=== PATIENT | female | born 1950 | race Caucasian/White ===

== ENCOUNTER 2017-10-01 07:48 | Day surgery (SDC) | payer OTHER, SELFPAY ==
--- NOTE | 2017-10-01 | PATH_ITS ---
[facility] Accession Number: [id number] . 01 Material submitted: . POLYP AT ANUS . 02 Diagnosis: Designated Anal Polyp: Hyperplastic polyp. MRV/10/04/2017 . 02 Electronically signed: . Roberto Tay MD, PhD, Pathologist NPI- [id number] . 01 Gross description: . POLYP AT ANUS: Received in formalin is 1 fragment(s) of casanova, soft tissue measuring 0.4 x 0.3 x 0.1 cm submitted entirely in 1 cassette(s) /CKI /CKI . 02 Pathologist provided ICD-10: K62.1 . 02 CPT . 756974 Performed at: 01 [facility] [address], [place], [place] [id number] MD Alvarado Bower MD Phone: [phone] Performed at: 02 [facility] [address] [place], [place] [id number] MD Dom Lakhani MD Phone: [phone]
[2017-10-01 08:27] VITALS: BP 123/80; PULSE 77; RESP 16; TEMP 36.6; O2SAT 94; BMI 30.7
[2017-10-01] MEDS: SODIUM CHLORIDE 0.9% 1,000 ML 200 ML IV (08:33)
--- NOTE | 2017-10-01 09:05 | PM.HP.1 ---
History of Present Illness Date Patient Seen: 10/01/17 Time Patient Seen: 09:05 Chief complaint: [id number] Narrative: Patient is a woman whose last colonoscopy was 13 years ago. She is here for screening examination. Patient History Surgical History History of tonsillectomy Status post colonoscopy Status post laparoscopic cholecystectomy Family & Social History Family History: Reviewed 10/01/17 by Shai Tolentino MD Social History: household members spouse Meds Home Medications Medication Instructions Recorded Confirmed Type ACETAMINOPHEN 1 mg PO Q4HP PRN #1 tab 01/14/16 10/01/17 Rx omeprazole 20 mg capsule,delayed 20 mg PO QDAY #90 cap 07/14/17 10/01/17 Rx release Allergies Allergy/AdvReac Type Severity Reaction Status Date / Time No Known Drug Allergies Allergy Verified 10/01/17 08:20 Review of Systems Review of Systems All systems reviewed & are unremarkable except as noted in HPI and below Exam Vital Signs (past 8 hours): - 10/01/17 08:27 Temperature 97.9 F Pulse Rate 77 Respiratory Rate 16 Blood Pressure 123/80 H Pulse Oximetry 94 Oxygen Delivery Method Room Air Narrative Exam Narrative: Co operative in no apparent distress. Lungs are clear to auscultation no rales or rhonchi heart regular rate and rhythm no murmur gallop abdomen is soft protuberant nontender without mass patient is alert and oriented x3. Assessment & Plan (1) Screening for colon cancer: Current visit: Yes Status: Acute Plan: Assessment/Plan Narrative: Will proceed to colonoscopy. I have discussed the procedure and the rationale with the patient including risks of bleeding, perforation which would necessitate a major operation, failure to find remove all lesions and the potential to tattoo. They appeared to understand and wished to proceed.
--- NOTE | 2017-10-01 09:08 | PM.PREOP ---
Pre-operative Note Interval Note Pre-op Check: Yes History & Physical exam performed today by Physician Changes: No ASA Class (for procedural sedation): I
[2017-10-01] MEDS: MIDAZOLAM 5 MG/5 ML VIAL IV (09:29)
[2017-10-01] MEDS: fentaNYL 250 MCG/5 ML INJ IV (09:30)
--- NOTE | 2017-10-01 09:44 | PM.OP.ENDO ---
Operative Date/Time/Diagnoses Date of procedure: 10/01/17 Time of procedure: 09:44 Pre-op diagnosis: Screening exam. Post-op diagnosis: same (Diverticulosis sigmoid colon. single polyp in the rectum near anal verge) Procedure & Clinicians Study performed: Colonoscopy with cold biopsy Same procedure as scheduled: Yes Indications: Screening Surgeon: Shai Tolentino Procedure Notes SCOAP/Timeout: Performed Procedure in detail: The patient was placed in the left lateral decubitus position and underwent IV sedation directed by the surgeon consisting of fentanyl and Versed. Digital exam was remarkable for external skin tags from old hemorrhoidal disease.. The scope was inserted and advanced through the rectum into the sigmoid, descending, transverse, and ascending colon. The patient was noted to have sigmoid diverticulosis.. The cecum was reached identified by the ileocecal valve and the appendiceal opening. The scope was gradually brought out. The scope ultimately was retroflexed in the rectum. The appearance was[remarkable for 1 small polypoid lesion near the anal verge. This was biopsied and removed.]. The scope was removed and the patient tolerated the procedure well Scope withdrawal time: 11 min Sedation minutes: 30 Findings: diverticulosis Specimen(s): other (Polyp near anus) Complications: none Recommendations: Colonscopy in 5 years Follow up: as needed Disposition: PACU
[2017-10-01 09:46] VITALS: BP 98/67; PULSE 64; RESP 12; TEMP 36.8
[2017-10-01 09:51] VITALS: BP 98/63; PULSE 65; RESP 16; O2SAT 95
[2017-10-01 09:57] VITALS: BP 96/63; PULSE 64; RESP 12; O2SAT 93
[2017-10-01 10:02] VITALS: BP 108/72; PULSE 64; RESP 16; O2SAT 95
[2017-10-01 10:15] VITALS: BP 109/79; PULSE 64; RESP 16; TEMP 36.4; O2SAT 98
== END 2017-10-01 10:23 | disposition home or self-care (01) ==
PROVIDERS: Family Provider Family Medicine; PCP Family Medicine; Visit Provider Specialist
PROC: 0DJD8ZZ Inspection of Lower Intestinal Tract, Via Natural or Artificial Opening Endoscopic (ICD-10-PCS; CPT 45378; principal; 2017-10-01 08:45)
DX: Z12.11 Encounter for screening for malignant neoplasm of colon (principal); K57.30 Diverticulosis of large intestine without perforation or abscess without bleeding; K64.4 Residual hemorrhoidal skin tags; K62.1 Rectal polyp
CPT/HCPCS: 45380; 99152; 99153; J2250; J3010

== ENCOUNTER → 2018-04-01 08:42 | Outpatient (CLI) | payer OTHER, SELFPAY ==
--- NOTE | 2018-04-01 | DI.US.S_ITS ---
PROCEDURE: US THYROID INDICATIONS: RIGHT THYROID NODULE TECHNIQUE: Real-time scanning was performed of the thyroid gland, with image documentation. COMPARISON: None. FINDINGS: Right: Thyroid lobe measures 5.3 x 2.6 x 3.0 cm, and is homogeneous in echotexture. Left: Thyroid lobe measures 4.4 x 1.4 x 1.6 cm, and is homogenous in echotexture. Isthmus: 3.0 mm thick. Nodule number: 1 Location: Right mid Size: 4.4 x 2.7 x 3.2 cm. Composition: Cystic Echogenicity: Anechoic Shape: wider than tall. Margins: Smooth Echogenic foci: None Total points: 0 ACR TI-RADS category: Benign cyst. Nodule number: 2 Location: Left mid Size: 0.9 x 0.9 x 0.9 cm. Composition: Predominantly solid Echogenicity: Isoechoic Shape: wider than tall. Margins: Smooth Echogenic foci: None Total points: 3 ACR TI-RADS category: Mildly suspicious Nodule number: 3 Location: Left inferior Size: 1.1 x 0.9 x 0.8 cm. Composition: Solid Echogenicity: Isoechoic Shape: wider than tall. Margins: Smooth Echogenic foci: Internal punctate echogenic foci Total points: 6 ACR TI-RADS category: Moderately suspicious IMPRESSION: Right thyroid cyst and 2 left thyroid nodules as above. Recommend continued followup ultrasound as detailed below. ACR TI-RADS definitions and recommendations: TI-RADS 1 (benign): 0 points. FNA not needed. TI-RADS 2 (not suspicious): 2 points. FNA not needed. TI-RADS 3 (mildly suspicious): 3 points. * FNA if 2.5 cm or larger, follow up if 1.5 cm or larger (at 1, 3, and 5 years). TI-RADS 4 (moderately suspicious): 4-6 points. * FNA if 1.5 cm or larger, follow up if 1 cm or larger (at 1, 2, 3, and 5 years). TI-RADS 5 (highly suspicious): 7 points or more. * FNA if 1 cm or larger, follow up if 0.5 cm or larger (every year for 5 years). Dictated by: Shade CANTU Interpreted: Tigre Jordan MD on 04/01/2018 at 12:04 Approved by: Tigre Jordan M.D. on 04/01/2018 at 16:31
== END ==
PROVIDERS: PCP Nurse Practitioner Family; Visit Provider Nurse Practitioner Family
DX: E04.2 Nontoxic multinodular goiter (principal)
CPT/HCPCS: 76536

== ENCOUNTER → 2018-04-19 09:43 | Outpatient (CLI) | payer OTHER, SELFPAY ==
--- NOTE | 2018-04-19 09:45 | DI.MG.S_ITS ---
BILATERAL DIGITAL SCREENING MAMMOGRAM 3D/2D WITH CAD: 04/19/2018 CLINICAL: Routine screening. Comparison is made to exams dated: 01/12/2017 mammogram and 01/09/2015 mammogram - [facility]. There are scattered fibroglandular elements in both breasts. Current study was also evaluated with a Computer Aided Detection (CAD) system. No significant masses, calcifications, or other findings are seen in either breast. There has been no significant interval change. IMPRESSION: NEGATIVE There is no mammographic evidence of malignancy. A 1 year screening mammogram is recommended. This exam was interpreted at Station ID: [id number]. NOTE: For mammograms, a report in lay terms will be sent to the patient. Approximately 15% of breast malignancies will not be visualized mammographically. In the management of a palpable breast mass, a negative mammogram must not discourage biopsy of a clinically suspicious lesion. Electronically Signed By: Jak [email or web address]:04/19/2018 10:51:16 letter sent: Normal Exam ACR BI-RADS Category 1: Negative [id number]
== END ==
PROVIDERS: PCP Nurse Practitioner Family; Visit Provider Nurse Practitioner Family
DX: Z12.31 Encounter for screening mammogram for malignant neoplasm of breast (principal)
CPT/HCPCS: 77063; 77067

== ENCOUNTER → 2018-06-17 16:40 | Outpatient (REF) | payer OTHER, SELFPAY | LOC: LAB 16:40 | PROVIDERS: PCP Nurse Practitioner Family; Visit Provider Nurse Practitioner Family | DX: R10.2 Pelvic and perineal pain (principal) | CPT/HCPCS: 87086 ==

== ENCOUNTER 2018-08-23 13:45 | Outpatient (RCR) | payer OTHER, SELFPAY ==
--- NOTE | 2018-08-18 16:00 | PT.OPPOC ---
Current Diagnoses Other female genital prolapse (08/18/18) Provider Visit Care Team Role Provider Type XIMENA Cuellar Attending Provider Non-Staff Primary Care Provider Specialty: Medical Address: [address] [place] [address], [id number] Email: Plan Of Care PT-OP-T Assessment and Plan Start: 08/18/18 09:05 Freq: Status: Active Protocol: Document 08/18/18 14:30 AMB (Rec: 08/19/18 08:22 AMB [email or web address]) Physical Therapy Assessment Rehab Potential Rehabilitation Potential Good Evaluation Complexity Number of Personal Factors/Comorbidities 1-2 Number of Body Systems Impaired 1-2 Clinical Presentation at Evaluation Stable Impairments Impairments Pain Strength Goals Two Impairment Strength Short Term Goal (STG) Cassidy will improve her pelvic floor strength to 4/5 in all planes. STG Duration 4 weeks Usp Goal (LTG) Cassidy will successfully contract her pelvic floor in standing while lifting 10 pounds. LTG Duration 8 weeks One Impairment Pain Short Term Goal (STG) Cassidy will report 1/10 abdominal pain or less at the end of the day. STG Duration 8 weeks Assessment Summary Assessment Cassidy attends physical therapy due to lower abdominal pain that has been about the same for the last 6 months. She describes it as a heaviness but denies heaviness in her vagina. She does have at least a grade 2 cystocele (difficulty bearing down) with weakness in the pelvic floor, but denies incontinence. So she will benefit from pelvic floor physical therapy to strengthen her pelvic floor as well as education in how to avoid worsening her prolaspse. Physical Therapy Plan Frequency and Duration Frequency of Treatment 1x/Week Duration of Treatment 8 weeks Plan of Care Start Date 08/18/18 Plan of Care End Date 10/13/18 Therapeutic Interventions Therapeutic Interventions Home Exercise Program Manual Therapy Neuromuscular Re-education Self-Care/Home Management Therapeutic Activities Therapeutic Exercises Modalities Biofeedback Electric Stimulation Next Visit Focus/Plan Next Note Type Treatment Note Next Visit Plan sEMG, start in supine, seated. Plan of Care Dates Plan of Care Start Date 08/18/18 Plan of Care End Date 10/13/18 Please Sign and Return: I have reviewed this Plan of Care and certify that the skilled therapy services above are required to meet the patient?s needs. Physician Signature Date Printed Name and Credentials Clinical Instructor Signature Printed Name and Credentials
--- NOTE | 2018-08-18 16:00 | PT.OIE ---
Current Diagnoses Other female genital prolapse (08/18/18) Past Medical History (Last Reviewed 11/23/17 @ 12:30 by Ellyn Dela Cruz DO) Borderline osteopenia (Chronic ~06/2003) COPD (chronic obstructive pulmonary disease) (Chronic) Cataracts, bilateral (Chronic ~05/2017) Elevated blood pressure reading without diagnosis of hypertension (Chronic ~2011) GERD (gastroesophageal reflux disease) (Chronic) Hyperlipemia (Chronic) Pyelonephritis (Resolved 12/2015) Past Surgical History (Last Reviewed 11/23/17 @ 12:30 by Ellyn Dela Cruz DO) History of tonsillectomy Status post colonoscopy Status post laparoscopic cholecystectomy (2003) Provider Visit Care Team Role Provider Type XIMENA Cuellar Attending Provider Non-Staff Primary Care Provider Specialty: Medical Address: [address] [place] [address], [facility] Email: Physical Therapy Initial Evaluation PT-OP-A Visit Information Start: 08/18/18 09:05 Freq: Status: Active Protocol: Document 08/18/18 14:30 AMB (Rec: 08/19/18 07:45 AMB [id number]) Out-Patient Physical Therapy Visit Information Visit Information Visit Type Initial Evaluation Visit Start Time 14:30 Visit Stop Time 15:15 Total Visit Minutes 45 Visit Number 1 PT-OP-B Current Condition Start: 08/18/18 09:05 Freq: Status: Active Protocol: Document 08/18/18 14:30 AMB (Rec: 08/19/18 08:09 AMB [email or web address]) Current Condition History of Current Condition Onset Date 6 months ago Current Complaints lower abdominal pain History of Current Condition Cassidy reports lower abdominal pain that has been present for the last 6 months that her doctor thinks is caused by her prolapse. She was told about 10 years ago that she had prolapse but it didn't become painful until recently. Describes the pain as heaviness but more in the lower abdomen than vaginally. Denies leaking. Vaginally delivered 3 babies with forceps delivery with the first, tearing she thinks a second degree but isn't sure. Pain has been about the same over the past 6 months, it is worse in the evening, does not feel it is necessarily worse with certain positions or standing. Treatment Goals Patient/Caregiver Goals Reduce lower abdominal pain Current Functional Impairments (Reported) Functional Limitations- Mobility/Gait Pain worse at the end of the day. Personal Factors Other Personal Factors That May Effect low back pain Therapy/Recovery PT-OP-C Subjective Start: 08/18/18 09:05 Freq: Status: Active Protocol: Document 08/18/18 14:30 AMB (Rec: 08/19/18 07:45 AMB [id number]) Patient Questionnaires Pelvic Pain and Urgency/Frequency Patient Symptom Scale Pelvic Pain Score 10 PT-OP-I Pelvic Floor Start: 08/18/18 09:05 Freq: Status: Active Protocol: Document 08/18/18 14:30 AMB (Rec: 08/19/18 07:57 AMB [email or web address]) Pelvic Floor Assessment Urine Pelvic Floor Surgery No Urinary Symptoms Prolapse Falling Out Feeling/Heavy Other Urinary Symptoms Denies leaks, does take a long time to void completely (1 minute) Voiding Frequency every 2-3 hours Nocturia 2 Prolapse Cystocele Grade 2 Prolapse Comments difficulty bearing down Perineal Descent Resting Present Bearing Present Contraction Ability Voluntary Contraction Weak Voluntary Relaxation Weak Manual Muscle Testing Left 2 Manual Muscle Testing Right 2 Manual Muscle Testing Anterior 2 Manual Muscle Testing Posterior 3 Muscle Endurance (Seconds) 5 Number of Quick Contractions In 10 3 Seconds PT-OP-Q Treatments Start: 08/18/18 09:05 Freq: Status: Active Protocol: Document 08/18/18 14:30 AMB (Rec: 08/19/18 08:29 AMB [email or web address]) Therapeutic Exercises Supine Exercises 2 Supine Exercise Name long holds Comments 5 sec 1 Supine Exercise Name quick flicks Comments vc lift and squeeze PT-OP-T Assessment and Plan Start: 08/18/18 09:05 Freq: Status: Active Protocol: Document 08/18/18 14:30 AMB (Rec: 08/19/18 08:22 AMB [email or web address]) Physical Therapy Assessment Rehab Potential Rehabilitation Potential Good Evaluation Complexity Number of Personal Factors/Comorbidities 1-2 Number of Body Systems Impaired 1-2 Clinical Presentation at Evaluation Stable Impairments Impairments Pain Strength Goals Two Impairment Strength Short Term Goal (STG) Cassidy will improve her pelvic floor strength to 4/5 in all planes. STG Duration 4 weeks Correction Goal (LTG) Cassidy will successfully contract her pelvic floor in standing while lifting 10 pounds. LTG Duration 8 weeks One Impairment Pain Short Term Goal (STG) Cassidy will report 1/10 abdominal pain or less at the end of the day. STG Duration 8 weeks Assessment Summary Assessment Cassidy attends physical therapy due to lower abdominal pain that has been about the same for the last 6 months. She describes it as a heaviness but denies heaviness in her vagina. She does have at least a grade 2 cystocele (difficulty bearing down) with weakness in the pelvic floor, but denies incontinence. So she will benefit from pelvic floor physical therapy to strengthen her pelvic floor as well as education in how to avoid worsening her prolaspse. Physical Therapy Plan Frequency and Duration Frequency of Treatment 1x/Week Duration of Treatment 8 weeks Plan of Care Start Date 08/18/18 Plan of Care End Date 10/13/18 Therapeutic Interventions Therapeutic Interventions Home Exercise Program Manual Therapy Neuromuscular Re-education Self-Care/Home Management Therapeutic Activities Therapeutic Exercises Modalities Biofeedback Electric Stimulation Next Visit Focus/Plan Next Note Type Treatment Note Next Visit Plan sEMG, start in supine, seated.
--- NOTE | 2018-08-23 16:00 | PT.OTN ---
Current Diagnoses Other female genital prolapse (08/23/18) Physical Therapy Treatment Note PT-OP-A Visit Information Start: 08/18/18 09:05 Freq: Status: Active Protocol: Document 08/23/18 13:45 AMB (Rec: 08/24/18 06:56 AMB [email or web address]) Out-Patient Physical Therapy Visit Information Visit Information Visit Type Treatment Note Visit Start Time 13:45 Visit Stop Time 14:30 Total Visit Minutes 45 Visit Number 2 PT-OP-B Current Condition Start: 08/18/18 09:05 Freq: Status: Active Protocol: Document 08/18/18 14:30 AMB (Rec: 08/19/18 08:09 AMB [email or web address]) Current Condition History of Current Condition Onset Date 6 months ago Current Complaints lower abdominal pain History of Current Condition Cassidy reports lower abdominal pain that has been present for the last 6 months that her doctor thinks is caused by her prolapse. She was told about 10 years ago that she had prolapse but it didn't become painful until recently. Describes the pain as heaviness but more in the lower abdomen than vaginally. Denies leaking. Vaginally delivered 3 babies with forceps delivery with the first, tearing she thinks a second degree but isn't sure. Pain has been about the same over the past 6 months, it is worse in the evening, does not feel it is necessarily worse with certain positions or standing. Treatment Goals Patient/Caregiver Goals Reduce lower abdominal pain Current Functional Impairments (Reported) Functional Limitations- Mobility/Gait Pain worse at the end of the day. Personal Factors Other Personal Factors That May Effect low back pain Therapy/Recovery PT-OP-C Subjective Start: 08/18/18 09:05 Freq: Status: Active Protocol: Document 08/23/18 13:45 AMB (Rec: 08/24/18 06:56 AMB [email or web address]) OP-PT Subjective Patient Comments Patient Comments Pt states she already feels like her abdominal pain is a little better. Better awareness not to let it hang out and focusing on core/ pelvic floor stability. she continues to have back pain. PT-OP-I Pelvic Floor Start: 08/18/18 09:05 Freq: Status: Active Protocol: Document 08/18/18 14:30 AMB (Rec: 08/19/18 07:57 AMB [email or web address]) Pelvic Floor Assessment Urine Pelvic Floor Surgery No Urinary Symptoms Prolapse Falling Out Feeling/Heavy Other Urinary Symptoms Denies leaks, does take a long time to void completely (1 minute) Voiding Frequency every 2-3 hours Nocturia 2 Prolapse Cystocele Grade 2 Prolapse Comments difficulty bearing down Perineal Descent Resting Present Bearing Present Contraction Ability Voluntary Contraction Weak Voluntary Relaxation Weak Manual Muscle Testing Left 2 Manual Muscle Testing Right 2 Manual Muscle Testing Anterior 2 Manual Muscle Testing Posterior 3 Muscle Endurance (Seconds) 5 Number of Quick Contractions In 10 3 Seconds PT-OP-Q Treatments Start: 08/18/18 09:05 Freq: Status: Active Protocol: Document 08/23/18 13:45 AMB (Rec: 08/24/18 06:56 AMB [email or web address]) Therapeutic Exercises Supine Exercises 3 Supine Exercise Name roll in Resistance ball Comments with pelvic floor Neuro Re-Education Treatment Other Activities 1 Details sEMG training Comments long holds, quick flicks in hooklying PT-OP-T Assessment and Plan Start: 08/18/18 09:05 Freq: Status: Active Protocol: Document 08/23/18 13:45 AMB (Rec: 08/24/18 06:56 AMB [email or web address]) Physical Therapy Assessment Assessment Summary Assessment Cassidy had a good understanding of exercises today, started out over using TrA, but diminished with cues. Physical Therapy Plan Next Visit Focus/Plan Next Note Type Treatment Note Next Visit Plan Progress into seated, quadruped as tolerated
--- NOTE | 2018-09-19 08:11 | PT.OPDS ---
Current Diagnoses Other female genital prolapse (08/23/18) Provider Visit Care Team Role Provider Type XIMENA Cuellar Attending Provider Non-Staff Primary Care Provider Specialty: Medical Address: [address] [place] [address], [facility] Email: Visit Number Visit Number 2 Discharge Summary PT-OP-B Current Condition Start: 08/18/18 09:05 Freq: Status: Active Protocol: Document 08/18/18 14:30 AMB (Rec: 08/19/18 08:09 AMB [email or web address]) Current Condition History of Current Condition Onset Date 6 months ago Current Complaints lower abdominal pain History of Current Condition Cassidy reports lower abdominal pain that has been present for the last 6 months that her doctor thinks is caused by her prolapse. She was told about 10 years ago that she had prolapse but it didn't become painful until recently. Describes the pain as heaviness but more in the lower abdomen than vaginally. Denies leaking. Vaginally delivered 3 babies with forceps delivery with the first, tearing she thinks a second degree but isn't sure. Pain has been about the same over the past 6 months, it is worse in the evening, does not feel it is necessarily worse with certain positions or standing. Treatment Goals Patient/Caregiver Goals Reduce lower abdominal pain Current Functional Impairments (Reported) Functional Limitations- Mobility/Gait Pain worse at the end of the day. Personal Factors Other Personal Factors That May Effect low back pain Therapy/Recovery PT-OP-C Subjective Start: 08/18/18 09:05 Freq: Status: Active Protocol: Document 08/23/18 13:45 AMB (Rec: 08/24/18 06:56 AMB [email or web address]) OP-PT Subjective Patient Comments Patient Comments Pt states she already feels like her abdominal pain is a little better. Better awareness not to let it hang out and focusing on core/ pelvic floor stability. she continues to have back pain. PT-OP-I Pelvic Floor Start: 08/18/18 09:05 Freq: Status: Active Protocol: Document 08/18/18 14:30 AMB (Rec: 08/19/18 07:57 AMB [email or web address]) Pelvic Floor Assessment Urine Pelvic Floor Surgery No Urinary Symptoms Prolapse Falling Out Feeling/Heavy Other Urinary Symptoms Denies leaks, does take a long time to void completely (1 minute) Voiding Frequency every 2-3 hours Nocturia 2 Prolapse Cystocele Grade 2 Prolapse Comments difficulty bearing down Perineal Descent Resting Present Bearing Present Contraction Ability Voluntary Contraction Weak Voluntary Relaxation Weak Manual Muscle Testing Left 2 Manual Muscle Testing Right 2 Manual Muscle Testing Anterior 2 Manual Muscle Testing Posterior 3 Muscle Endurance (Seconds) 5 Number of Quick Contractions In 10 3 Seconds PT-OP-T Assessment and Plan Start: 08/18/18 09:05 Freq: Status: Active Protocol: Document 09/19/18 07:58 AMB (Rec: 09/19/18 08:11 AMB [email or web address]) Physical Therapy Assessment Assessment Summary Assessment At her last visit, Cassidy was starting to notice improvement in her abdominal pain. Afterwards she called to cancel her remaining appointments because she has a busy summer. So as far as this therapist knows, she was improving, and stated that if she needs further therapy she will get a new referral in the fall. Physical Therapy Plan Discharge Physical Therapy Discharge Reasons Patient Request
== END 2018-09-28 10:50 | disposition home or self-care (01) ==
LOC: PHYS 13:45
PROVIDERS: PCP Nurse Practitioner Family; Visit Provider Nurse Practitioner Family
DX: N81.89 Other female genital prolapse (principal)
CPT/HCPCS: 97110; 97112; 97161

== ENCOUNTER → 2019-03-13 10:44 | Outpatient (CLI) | payer OTHER, SELFPAY ==
--- NOTE | 2019-03-13 | DI.US.S_ITS ---
PROCEDURE: US THYROID INDICATIONS: RIGHT THYROID NODULE TECHNIQUE: Real-time scanning was performed of the thyroid gland, with image documentation. COMPARISON: [facility], US, US THYROID, 04/01/2018, 9:06. FINDINGS: Right: Thyroid lobe measures 4.3 x 2.6 x 3.0 cm, and is diffusely heterogeneous in echotexture. Left: Thyroid lobe measures 3.6 x 1.4 x 1.5 cm, and is homogenous in echotexture. Isthmus: 3.6 mm thick. Nodule number: 1 Location: Right mid Size: Unchanged at 4.3 x 2.6 x 3.0 cm. Composition: Cystic Echogenicity: Anechoic Shape: wider than tall. Margins: Smooth Echogenic foci: None Total points: 0 ACR TI-RADS category: Benign Nodule number: 2 Location: Left mid Size: Unchanged at 1.0 x 0.7 x 0.7 cm. Composition: Predominant solid Echogenicity: Isoechoic Shape: wider than tall. Margins: Smooth Echogenic foci: None Total points: 3 ACR TI-RADS category: Mildly suspicious Nodule number: 3 Location: Left inferior Size: Unchanged at 1.1 x 1.0 x 0.8 cm. Composition: Solid Echogenicity: Isoechoic Shape: wider than tall. Margins: Smooth Echogenic foci: Internal punctate echogenic foci Total points: 6 ACR TI-RADS category: Moderately suspicious IMPRESSION: Right colloid cyst and stable appearance of left thyroid nodules. Recommend continued followup ultrasound as detailed below. ACR TI-RADS definitions and recommendations: TI-RADS 1 (benign): 0 points. FNA not needed. TI-RADS 2 (not suspicious): 2 points. FNA not needed. TI-RADS 3 (mildly suspicious): 3 points. * FNA if 2.5 cm or larger, follow up if 1.5 cm or larger (at 1, 3, and 5 years). TI-RADS 4 (moderately suspicious): 4-6 points. * FNA if 1.5 cm or larger, follow up if 1 cm or larger (at 1, 2, 3, and 5 years). TI-RADS 5 (highly suspicious): 7 points or more. * FNA if 1 cm or larger, follow up if 0.5 cm or larger (every year for 5 years). Dictated by: Shade CANTU Interpreted: Candy Chance MD on 03/15/2019 at 9:28 Approved by: Candy Chance MD, PhD on 03/16/2019 at 10:17
== END ==
PROVIDERS: PCP Internal Medicine; Visit Provider Nurse Practitioner Family
DX: E04.2 Nontoxic multinodular goiter (principal)
CPT/HCPCS: 76536

== ENCOUNTER → 2019-10-10 11:53 | Outpatient (CLI) | payer OTHER, SELFPAY ==
--- NOTE | 2019-10-10 | DI.RAD.S_ITS ---
PROCEDURE: XR KNEE LT 3V INDICATIONS: RIGHT KNEE PAIN TECHNIQUE: 3 views of the knee were acquired. COMPARISON: [facility], , KNEE 3V RIGHT, 11/07/2015, 13:58. FINDINGS: Bones: No acute fracture or dislocation. There is mild femorotibial compartment narrowing. There is small intercondylar and lateral femorotibial compartment osteophytes. Soft tissues: No joint effusion. No suspicious soft tissue calcifications. IMPRESSION: Fefm-py-[id number] knee osteoarthritis. Dictated by: Sofía Cerda M.D. on 10/10/2019 at 15:24 Approved by: Sofía Cerda M.D. on 10/10/2019 at 15:25
== END ==
PROVIDERS: PCP Internal Medicine; Referring Provider Internal Medicine; Visit Provider Internal Medicine
DX: M25.561 Pain in right knee (principal); M17.11 Unilateral primary osteoarthritis, right knee
CPT/HCPCS: 73562

== ENCOUNTER → 2020-12-11 10:12 | Outpatient (CLI) | payer OTHER, SELFPAY ==
--- NOTE | 2020-12-11 | DI.RAD.S_ITS ---
PROCEDURE: XR DEXA AXIAL SKELETON INDICATIONS: Nontoxic single thyroid nodule COMPARISON: None. FINDINGS: This blank DEXA report has been sent in error by the PACS system. The correct and complete report will be forthcoming in 1-2 days. Thank you for your patience and understanding. Dictated by: Candy Chance MD, PhD on 12/11/2020 at 16:51 Approved by: Candy Chance MD, PhD on 12/11/2020 at 16:52
--- NOTE | 2020-12-11 | DI.US.S_ITS ---
PROCEDURE: US THYROID INDICATIONS: NONTOXIC SINGLE THYROID NODULE TECHNIQUE: Real-time scanning was performed of the thyroid gland, with image documentation. COMPARISON: [facility], US, US THYROID, 03/13/2019, 11:06. FINDINGS: Right: Thyroid lobe measures 4.9 x 2.9 x 3 cm, and is homogeneous in echotexture. Left: Thyroid lobe measures 4.3 x 1.3 x 1.7 cm, and is homogenous in echotexture. Isthmus: 0.3 cm thick. Nodule number: 1 Location: Left mid Size: 0.8 x 0.9 x 0.6 cm, previously 1.0 x 0.7 x 0.7 cm Composition: Solid Echogenicity: Isoechoic Shape: Wider than tall Margins: Smooth Echogenic foci: None Total points: 3 ACR TI-RADS category: Mildly suspicious Nodule number: 2 Location: Left inferior Size: 1.3 x 1.1 x 0.8 cm, previously 1.1 x 1.0 x 0.8 cm Composition: Solid Echogenicity: Isoechoic Shape: Wider than tall Margins: Smooth Echogenic foci: Punctate Total points: 6 ACR TI-RADS category: Moderately suspicious Nodule number: 3 Location: Right Size: 4.1 x 2.1 x 2.6 cm, previously 4.3 x 2.6 cm Composition: Cystic Echogenicity: Anechoic Shape: Wider than tall Margins: Smooth Echogenic foci: None Total points: 0 ACR TI-RADS category: Benign IMPRESSION: Left-sided thyroid nodules have not significantly changed. Recommend continued ultrasound follow-up based on guidelines provided below. ACR TI-RADS definitions and recommendations: TI-RADS 1 (benign): 0 points. FNA not needed. TI-RADS 2 (not suspicious): 2 points. FNA not needed. TI-RADS 3 (mildly suspicious): 3 points. * FNA if 2.5 cm or larger, follow up if 1.5 cm or larger (at 1, 3, and 5 years). TI-RADS 4 (moderately suspicious): 4-6 points. * FNA if 1.5 cm or larger, follow up if 1 cm or larger (at 1, 2, 3, and 5 years). TI-RADS 5 (highly suspicious): 7 points or more. * FNA if 1 cm or larger, follow up if 0.5 cm or larger (every year for 5 years). Dictated by: Ramiro Dhillon M.D. on 12/11/2020 at 15:55 Approved by: Ramiro Dhillon M.D. on 12/11/2020 at 16:01
== END ==
PROVIDERS: PCP Internal Medicine; Referring Provider Internal Medicine; Visit Provider Internal Medicine
DX: M85.88 Other specified disorders of bone density and structure, other site (principal); E04.2 Nontoxic multinodular goiter; Z78.0 Asymptomatic menopausal state
CPT/HCPCS: 76536; 77080

== ENCOUNTER → 2020-12-28 11:21 | Outpatient (CLI) | payer OTHER, SELFPAY ==
--- NOTE | 2020-12-28 11:21 | DI.MG.S_ITS ---
BILATERAL DIGITAL SCREENING MAMMOGRAM 3D/2D WITH CAD: 12/28/2020 CLINICAL: Routine screening. Comparison is made to exams dated: 04/19/2018 mammogram, 01/12/2017 mammogram, and 01/09/2015 mammogram - [facility]. There are scattered fibroglandular elements in both breasts. Current study was also evaluated with a Computer Aided Detection (CAD) system. No significant masses, calcifications, or other findings are seen in either breast. There has been no significant interval change. IMPRESSION: NEGATIVE There is no mammographic evidence of malignancy. A 1 year screening mammogram is recommended. This exam was interpreted at Station ID: [id number]. NOTE: For mammograms, a report in lay terms will be sent to the patient. Approximately 15% of breast malignancies will not be visualized mammographically. In the management of a palpable breast mass, a negative mammogram must not discourage biopsy of a clinically suspicious lesion. Electronically Signed By: Alvarado davila/aubrie:12/30/2020 09:10:54 letter sent: Normal Exam ACR BI-RADS Category 1: Negative [id number]
== END ==
PROVIDERS: PCP Internal Medicine; Referring Provider Internal Medicine; Visit Provider Internal Medicine
DX: Z12.31 Encounter for screening mammogram for malignant neoplasm of breast (principal)
CPT/HCPCS: 77063; 77067

== ENCOUNTER → 2021-01-20 15:40 | Outpatient (CLI) | payer OTHER, SELFPAY ==
--- NOTE | 2021-01-20 15:43 | DI.RAD.S_ITS ---
PROCEDURE: XR HAND RT MIN 3V INDICATIONS: RIGHT POINTER FINGER SWOLLEN TECHNIQUE: 3 views of the hand(s) acquired. COMPARISON: None. FINDINGS: Bones: No fractures or dislocations. Moderate joint space loss with osteophytosis of the 1st interphalangeal joint. Carpal bones are normally aligned. No suspicious bony lesions. Soft tissues: No suspicious soft tissue calcifications. Diffuse soft tissue prominence of the 2nd digit. IMPRESSION: 1. No acute osseous abnormality. 2. Diffuse soft tissue prominence of the 2nd digit. Dictated by: Carlo Fountain M.D. on 01/20/2021 at 16:17 Approved by: Carlo Fountain M.D. on 01/20/2021 at 16:21
== END ==
PROVIDERS: PCP Internal Medicine; Referring Provider Internal Medicine; Visit Provider Internal Medicine
DX: M79.644 Pain in right finger(s) (principal); M79.89 Other specified soft tissue disorders
CPT/HCPCS: 73130

== ENCOUNTER → 2021-04-23 11:20 | Outpatient (CLI) | payer OTHER, SELFPAY ==
--- NOTE | 2021-04-23 11:24 | DI.RAD.S_ITS ---
PROCEDURE: XR HIP W PEL IF DONE RT 2V INDICATIONS: low back pain, SI joint pain on right, right hip pain TECHNIQUE: AP pelvis with lateral view(s) of the right hip(s). COMPARISON: None. FINDINGS: Bones: No fractures or dislocations. Pelvic ring appears intact. No suspicious bony lesions. Mild joint narrowing with periarticular osteophyte formation of the hip joints bilaterally. Degenerative disc and facet disease involves the inferior lumbar spine. Soft tissues: The visualized bowel gas pattern is normal. No suspicious soft tissue calcifications. IMPRESSION: Mild symmetric hip joint degeneration. Dictated by: Shade Orellana [facility] Interpreted: Ramiro Dhillon MD on 04/23/2021 at 16:13 Transcribed by: LUCAS on 04/23/2021 at 16:13 Approved by: Ramiro Dhillon M.D. on 04/23/2021 at 17:19
--- NOTE | 2021-04-23 11:24 | DI.RAD.S_ITS ---
PROCEDURE: XR LUMBAR SPINE 2-3V INDICATIONS: low back pain, SI joint pain on right, right hip pain TECHNIQUE: 3 views of the lumbar spine were acquired. COMPARISON: None. FINDINGS: Bones: 5 onr-itm-ttxbjsl vertebrae are present. There is grade 1 anterolisthesis of L4 on L5. Multilevel moderate disc space narrowing most severe at L4-5 and L5-S1. Moderate to severe foraminal narrowing is present at L5-S1, [id number]-[id number] L2-3, L3-4, mild L4-5. No vertebral body compression fractures. No suspicious bony lesions. Soft tissues: Overlying bowel gas pattern is normal. No suspicious soft tissue calcifications. IMPRESSION: Multilevel degenerative changes most severe at L5-S1. Dictated by: Joycelyn Rogers M.D. on 04/23/2021 at 16:31 Approved by: Joycelyn Rogers M.D. on 04/23/2021 at 16:32
== END ==
PROVIDERS: PCP Internal Medicine; Referring Provider Internal Medicine; Visit Provider Internal Medicine
DX: M16.0 Bilateral primary osteoarthritis of hip (principal); M47.816 Spondylosis without myelopathy or radiculopathy, lumbar region; M47.817 Spondylosis without myelopathy or radiculopathy, lumbosacral region; M54.50 Low back pain, unspecified; M25.551 Pain in right hip; M53.3 Sacrococcygeal disorders, not elsewhere classified
CPT/HCPCS: 72100; 73502

== ENCOUNTER → 2021-10-22 13:08 | Outpatient (CLI) | payer OTHER, SELFPAY ==
--- NOTE | 2021-10-22 13:10 | DI.RAD.S_ITS ---
PROCEDURE: XR CHEST 1V INDICATIONS: Dyspnea on exertion TECHNIQUE: One view of the chest was acquired. COMPARISON: [facility], , CHEST 1 VIEW, 01/12/2016, 19:39. FINDINGS: Surgical changes and devices: None. Lungs and pleura: Chronic emphysematous changes are seen. Linear scarring/atelectasis in bilateral lower lung gordon are seen. No definite focal infiltrate. No pleural effusions or pneumothorax. Mediastinum: Mediastinal contours appear normal. Heart size is normal. Bones and chest wall: No suspicious bony lesions. Overlying soft tissues appear unremarkable. IMPRESSION: Mild emphysematous changes. Bilateral linear scarring/atelectasis. No focal infiltrate, pleural effusion or pneumothorax. Dictated by: Mahesh Novak M.D. on 10/22/2021 at 16:19 Approved by: Mahesh Novak M.D. on 10/22/2021 at 16:22
== END ==
PROVIDERS: PCP Internal Medicine; Referring Provider Internal Medicine; Visit Provider Internal Medicine
DX: R06.00 Dyspnea, unspecified (principal)
CPT/HCPCS: 71045

== ENCOUNTER → 2021-10-31 15:10 | Outpatient (CLI) | payer OTHER, SELFPAY ==
--- NOTE | 2021-10-31 | DI.US.S_ITS ---
PROCEDURE: US ABDOMEN COMPLETE INDICATIONS: Right upper quadrant pain TECHNIQUE: Real-time scanning was performed of the abdominal and retroperitoneal organs, with image documentation. COMPARISON: None. FINDINGS: Liver: Liver is diffusely increased in echogenicity. No focal hepatic abnormalities identified. Normal hepatic size. Gallbladder: Surgically absent. Biliary ducts: Intrahepatic bile ducts are non-dilated. Extrahepatic bile duct caliber measures 5.7 mm. Normal is 6-7 mm or less in diameter, or 10 mm or less post-cholecystectomy. Pancreas: Visualized portions of the pancreas are sonographically normal. Spleen: Spleen is normal in size and homogeneous in echotexture. Kidneys: Kidneys are normal in size and echotexture. Right kidney measures 12.5 cm long; left kidney measures 12 cm long. No hydronephrosis or nephrolithiasis. No solid masses. Aorta: Visualized aorta is normal in caliber at less than 3 cm. Iliacs: Proximal common iliac arteries are normal in caliber at less than 2.5 cm. IVC: Intrahepatic inferior vena cava is patent. Miscellaneous: No free abdominal fluid. IMPRESSION: Increased hepatic echogenicity noted possibly related to hepatic steatosis but other sources of hepatocellular disease cannot be excluded. Recommend clinical correlation. Dictated by: Shade CANTU Interpreted: Young Silva MD on 10/31/2021 at 16:25 Transcribed by: DANIELA on 10/31/2021 at 16:26 Approved by: Young Silva M.D. on 10/31/2021 at 18:41
--- NOTE | 2021-10-31 | DI.US.S_ITS ---
PROCEDURE: US PELVIC COMPLETE INDICATIONS: Right upper quadrant pain TECHNIQUE: Real-time scanning was performed of the pelvic organs, with image documentation. Additional endovaginal scanning was necessary due to incomplete visualization of the adnexal and endometrial structures by transabdominal scanning. COMPARISON: [facility], US, US ABDOMEN COMPLETE, 10/31/2021, 15:15. FINDINGS: Uterus: Uterus is anteverted and normal in size at 5.7 x 3.2 x 5.1 cm. The myometrium is homogeneous. The endometrium measures 4.0 mm combined thickness. Ovaries: The right ovary measures 2.1 x 1.1 x 1.1 cm, with a calculated ovarian volume of 1.3 cc. The left ovary is not visualized. Simple 5 mm right ovarian cyst. Other: No pathologic free abdominal or pelvic fluid. IMPRESSION: Simple 5 mm right ovarian cyst. No dedicated follow-up is necessary per current guidelines We strive to produce accurate, complete, and clear reports of imaging services. To assist us in improving patient care, this report was composed using standard report templates and voice recognition software. Therefore, it may contain abnormal punctuation, insertions and/or omissions. Occasional wrong-word or sound-alike substitutions may occur. Though we review the report and make efforts to correct it, we do recommend that the report be read carefully in proper context to recognize any text inaccuracies. Dictated by: Shade CANTU Interpreted: Young Silva MD on 10/31/2021 at 16:26 Transcribed by: DANIELA on 10/31/2021 at 16:27 Approved by: Young Silva M.D. on 10/31/2021 at 18:43
== END ==
PROVIDERS: PCP Internal Medicine; Referring Provider Internal Medicine; Visit Provider Internal Medicine
DX: R10.11 Right upper quadrant pain (principal); N83.291 Other ovarian cyst, right side
CPT/HCPCS: 76700; 76830; 76856

== ENCOUNTER → 2022-02-05 08:46 | Outpatient (CLI) | payer OTHER, SELFPAY ==
--- NOTE | 2022-02-05 | DI.CT.S_ITS ---
PROCEDURE: CT ABDOMEN PELVIS W CON INDICATIONS: LOWER LEFT QUADRANT PAIN/RETENTION OF URINE TECHNIQUE: After the administration of oral and IV contrast, axial sections were acquired from the lung bases to the pubic symphysis. Coronal and sagittal reformats were performed. For radiation dose reduction, the following was used: automated exposure control, adjustment of mA and/or kV according to patient size. COMPARISON: None. FINDINGS: Image quality: Excellent. Lung bases: There is a small tubular masslike consolidation in the posterior right lower lobe. Scattered areas of hypoattenuation throughout the lungs. Heart: No significant findings. ABDOMEN: Liver: Mild hepatomegaly. Gallbladder: Surgically absent. Biliary ducts: Nondilated. Pancreas: There is a cystic mass in the dorsal pancreatic tail measuring 2.5 x 1.5 cm. No associated calcifications or visible septation. Pancreatic duct is not visible/not dilated. Spleen: Normal size. Adrenal Glands: No nodules. Kidneys and Ureters: Symmetric enhancement. No nephrolithiasis or hydronephrosis. No hydroureter. Stomach and Bowel: Stomach and small bowel are normal. Mild colonic diverticulosis, particularly in the sigmoid. No acute inflammation. Normal appendix. Peritoneum: No abnormal intraperitoneal fluid. No free air. Ventral Wall: No hernia. Abdominal Nodes: No retroperitoneal or mesenteric adenopathy by size criteria. Vessels: Aorta and inferior vena cava are normal in size. PELVIS: Pelvic Organs: Uterus and ovaries are age appropriate. Bladder: Normal wall thickness. No stones. Pelvic Nodes: No enlarged lymph nodes. Miscellaneous: No inguinal hernias are seen. There is mild anterior and moderate posterior pelvic floor prolapse. Bones: Unremarkable. IMPRESSION: 1. There is diverticulosis of the sigmoid colon but no evidence of acute diverticulitis. 2. Urinary retention may be partially due to pelvic floor prolapse. 3. No evidence of proximal urinary obstruction. 4. Incidental note of 2.5 cm pancreatic tail cyst. Further characterization with MR of the abdomen using pancreas protocol is recommended. 5. Nonspecific consolidation in the right lower lung, potentially due to airway obstruction and atelectasis. Consider short-term follow-up chest CT in 1-3 months. Dictated by: Marine Choi M.D. on 02/05/2022 at 15:40 Approved by: Marine Choi M.D. on 02/05/2022 at 15:48
== END ==
PROVIDERS: PCP Internal Medicine; Referring Provider Registered Nurse; Visit Provider Registered Nurse
DX: N81.89 Other female genital prolapse (principal); K86.2 Cyst of pancreas; K57.30 Diverticulosis of large intestine without perforation or abscess without bleeding; R33.9 Retention of urine, unspecified; R10.32 Left lower quadrant pain; R16.0 Hepatomegaly, not elsewhere classified; Z90.49 Acquired absence of other specified parts of digestive tract
CPT/HCPCS: 74177; Q9967

== ENCOUNTER → 2022-02-20 11:08 | Outpatient (CLI) | payer OTHER, SELFPAY ==
--- NOTE | 2022-02-20 | DI.MRI.S_ITS ---
PROCEDURE: MR ABDOMEN WO/W CON INDICATIONS: Cyst of pancreas TECHNIQUE: Coronal HASTE, axial 2D FLASH in- and [id number]; axial breath-hold T2 FSE with fat saturation from the hepatic dome to the iliac crests. Oblique coronal thin-slice and radial thick slab HASTE through the biliary system. Dynamic axial VIBE during administration of contrast. Post-contrast coronal VIBE or 2D FLASH with fat saturation from the hepatic dome to the iliac crests. Optional diffusion weighted imaging and ADC may be performed. COMPARISON: [facility], CT, CT ABDOMEN PELVIS W CON, 02/05/2022, 10:22. FINDINGS: Image quality: Good, some images are degraded by motion. Lower chest: No pleural effusions. Lungs are not well evaluated on MRI. Solid organs: Liver is unremarkable. Gallbladder is absent. No pathologic dilation of the biliary tree. Hepatic steatosis. There are tiny pancreatic cystic lesions. The largest lesions at the pancreatic tail, corresponding to CT finding, measuring up to 2.0 x 1.5 by 1.6 centimeters. On post gadolinium images, no appreciable enhancing nodules identified. No pancreatic ductal dilation. No splenomegaly. No adrenal nodules. No hydronephrosis. Vessels and lymph nodes: No abdominal aortic aneurysm or pathologic adenopathy by size criteria. Bowel and peritoneum: No bowel obstruction or pathologic ascites. Body wall: Unremarkable Bones: No acute or suspicious osseous abnormality. IMPRESSION: Corresponding to CT abnormality is a pancreatic cystic lesion at the tail measuring up to 2 centimeters. Indeterminate connection with the main pancreatic duct, which is not dilated. Other tiny cystic lesions are also present. Consider follow-up MRI in 6 months. Other findings as above. Dictated by: Young Silva M.D. on 02/20/2022 at 14:31 Approved by: Young Silva M.D. on 02/20/2022 at 14:40
--- NOTE | 2022-02-20 | DI.CT.S_ITS ---
PROCEDURE: CT CHEST WO CON INDICATIONS: Other disorders of lung TECHNIQUE: Noncontrast 5 mm thick sections acquired from the pulmonary apices to the posterior costophrenic angles. 1 mm lung window, 5 mm thick coronal and sagittal and 7 mm axial MIP reformats were then acquired. For radiation dose reduction, the following was used: automated exposure control, adjustment of mA and/or kV according to patient size. COMPARISON: [facility], CR, XR CHEST 1V, 10/22/2021, 13:15. [facility], CT, CT ABDOMEN PELVIS W CON, 02/05/2022, 10:22. FINDINGS: Image quality: Excellent. Lungs and pleura: A focal mass or region of masslike consolidation is present within the posterior right lung base. This measures approximately 2.0 x 1.1 x 2.8 cm in diameter. When accounting for variation in scanning technique, this finding is similar in size and appearance to the comparison CT dated February 05, 2022. No new airspace opacities. A 7 mm pulmonary nodule is present within the left lower lobe (series 3/image 232). A 4 mm left lower lobe pulmonary nodule is present more superiorly (series 3/image 195). Mediastinum: Heart size is normal. No pericardial effusion. No mediastinal adenopathy by size criteria. Thoracic aorta and central pulmonary arteries are normal in size. Esophagus is normal in caliber. No hiatal hernia. Bones and chest wall: No suspicious bony lesions. No vertebral body compression fractures. No axillary or supraclavicular adenopathy by size criteria. The right thyroid lobe appears enlarged and may have a large cystic lesion present. Left thyroid lobe is unremarkable. Abdomen: Visualized upper abdominal solid organs and bowel loops appear normal in the absence of contrast. IMPRESSION: 1. Solitary mass versus consolidation at the right lung base. This is unchanged from the study dated February 05, 2022. Differential considerations include infection and neoplasm. If further characterization is warranted, PET-CT could be used. Alternatively, this lesion is likely amenable to percutaneous biopsy. 2. Left lower lobe pulmonary nodules. 6-12 month follow-up recommended. Please see follow-up guidelines below. Fleischner Society criteria for SOLID lung nodule followup. Nodule size (mm)Low-risk patientHigh-risk patient<6 (single or multiple)No routine followup.Optional CT at 12 months. 6-8 (single or multiple)CT at 6-12 months, then optional CT at 18-24 mo.CT at 6-12 months, then CT at 18-24 months. >8 (single)CT at 3 months, PET-CT, or biopsy. Same as for low-risk pts. >8 (multiple)CT at 3-6 months, then optional CT at 18-24 mo.CT at 3-6 months, then CT at 18-24 months. Fleischner Society criteria for SUB-SOLID lung nodule followup. Solitary pure ground-glass nodules<6 mm (ground glass or part solid)No followup needed. 6 mm or larger (ground glass)CT at 6-12 months to confirm persistence, then CT every 2 years until 5 years.6 mm or larger (part solid)CT at 3-6 months to confirm persistence, then annual CT until 5 years if unchanged and solid component remains <6 mm. Multiple sub-solid nodules<6 mmCT at 3-6 months, then CT consider at 2 & 4 years for high risk patients. [address] at 3-6 months. Subsequent management based on most suspicious lesions. Recommendations do not apply to lung cancer screening, patients with immunosuppression, or patients with known primary cancer. Dictated by: Sofía Cerda M.D. on 02/20/2022 at 12:48 Approved by: Sofía Cerda M.D. on 02/20/2022 at 12:53
== END ==
PROVIDERS: PCP Internal Medicine; Referring Provider Registered Nurse; Visit Provider Registered Nurse
DX: J98.4 Other disorders of lung (principal); K86.2 Cyst of pancreas; Z90.49 Acquired absence of other specified parts of digestive tract
CPT/HCPCS: 71250; 74183; A9579

== ENCOUNTER → 2022-04-10 09:49 | Outpatient (CLI) | payer OTHER, SELFPAY ==
--- NOTE | 2022-04-14 14:12 | PM.PFT.1 ---
Pulmonary Function Test Referral & Results Date Patient Seen: 04/10/22 Requesting provider: Ruthie Laureano Results: The spirometry demonstrates an FVC of 2.28 L which is 78% of predicted. The FEV1 was measured at 1.31 L which is 59% of predicted. The FEV1/FVC ratio was 57 which is 76% of predicted. Following the administration of bronchodilator there was 15% improvement in FEF 25-75%. Lung volumes show an SVC of 2.41 L which is 85% of predicted. The diffusing capacity was measured at 27.15 which is 111% of predicted. The maximum voluntary ventilation was reduced Interpretation: This study demonstrates moderate obstructive lung disease based on reduction FEV1 although there is relative preservation of the FEV1/FVC ratio. There is only very limited evidence of benefit post bronchodilator and that is only seen in small airway flow based on improvement in FEF 25-75% as above There is a minimal reduction in lung volumes suggesting the possibility of restrictive lung disease Clinical correlation suggested
== END ==
PROVIDERS: PCP Internal Medicine; Referring Provider Internal Medicine; Visit Provider Internal Medicine
DX: R06.02 Shortness of breath (principal); Z87.891 Personal history of nicotine dependence; J98.8 Other specified respiratory disorders
CPT/HCPCS: 94060; 94726; 94729

== ENCOUNTER → 2022-07-30 07:36 | Outpatient (CLI) | payer OTHER, SELFPAY ==
[2022-07-30 08:49] LABS: BUN Creatinine Ratio 17.6 (6-22); Blood Urea Nitrogen 15 mg/dL (7-17); Calcium 9.3 mg/dL (8.4-10.2); Carbon Dioxide 31 mmol/L (22-32); Chloride 100 mmol/L (98-107); Cholesterol 241 mg/dL (140-199); Estimated Glomerular Filt Rate > 60 mL/min (>60); Glucose 143 mg/dL (80-110); HDL Cholesterol 39 mg/dL (40-60); HEMOLYSIS < 15 (0-50); LDL Cholesterol Calculated 163 mg/dL (<100); Potassium 4.1 mmol/L (3.4-5.1); Sodium 138 mmol/L (137-145); Triglycerides 195 mg/dL (35-150)
[2022-07-31 08:44] LABS: x Labcorp Estim. Avg Glu (eAG) 146 mg/dL (.); x Labcorp Hemoglobin A1c 6.7 % (4.8-5.6)
== END ==
PROVIDERS: PCP Internal Medicine; Referring Provider Internal Medicine; Visit Provider Internal Medicine
DX: E11.9 Type 2 diabetes mellitus without complications (principal); I10 Essential (primary) hypertension; E78.2 Mixed hyperlipidemia
CPT/HCPCS: 36415; 80048; 80061; 83036

== ENCOUNTER 2022-11-11 10:15 | Outpatient (RCR) | payer OTHER, SELFPAY | END 2022-11-11 12:15 | LOC: PUL 10:15 | PROVIDERS: PCP Internal Medicine; Referring Provider Family Medicine; Visit Provider Family Medicine | DX: J44.9 Chronic obstructive pulmonary disease, unspecified (principal) | CPT/HCPCS: 94625; 94626 ==

== ENCOUNTER → 2023-08-06 12:07 | Outpatient (CLI) | payer OTHER, SELFPAY ==
--- NOTE | 2023-08-06 12:09 | DI.MG.S_ITS ---
BILATERAL DIGITAL SCREENING MAMMOGRAM 3D/2D WITH CAD: 08/06/2023 CLINICAL: Routine screening. Comparison is made to exams dated: 12/28/2020 mammogram, 04/19/2018 mammogram, and 01/12/2017 mammogram - . Both breasts are heterogeneously dense, which may obscure small masses (category c / 51-75% glandular tissue). Current study was also evaluated with a Computer Aided Detection (CAD) system. No significant masses, calcifications, or other findings are seen in either breast. There has been no significant interval change. IMPRESSION: NEGATIVE There is no mammographic evidence of malignancy. A 1 year screening mammogram is recommended. Based on the Tyrer Cuzick model (a risk assessment model) the patient's lifetime risk is 5.0% and her 10 year risk is 4.1%. According to the ACR, ACS, and NCCN guidelines, an annual breast MRI exam along with mammogram is recommended if the patient's lifetime risk is 20% or greater. This exam was interpreted at Station ID: [id number]. NOTE: For mammograms, a report in lay terms will be sent to the patient. Approximately 15% of breast malignancies will not be visualized mammographically. In the management of a palpable breast mass, a negative mammogram must not discourage biopsy of a clinically suspicious lesion. Electronically Signed By: Young morley/aubrie:08/06/2023 14:26:32 letter sent: Normal Exam ACR BI-RADS Category 1: Negative [id number]
--- NOTE | 2023-08-06 12:09 | DI.US.S_ITS ---
PROCEDURE: US THYROID INDICATIONS: FOLLOW-UP THYROID NODULES TECHNIQUE: Real-time scanning was performed of the thyroid gland, with image documentation. COMPARISON: [facility], US, US THYROID, 12/11/2020, 10:29. FINDINGS: Thyroid: Right lobe measures 4.7 x 3.0 x 3.0 cm. Left lobe measures 4.1 x 1.4 x 1.5 cm. Isthmus is 0.3 cm thick. Echotexture is mildly heterogeneous. Nodule number: 1 Not visualized (compared with prior) Nodule number: 2 Location: Left inferior pole Size: 1.7 x 1.2 x 1.3 cm. Previously 1.3 x 1.1 x 0.8 cm. Composition: Solid Echogenicity: Isoechoic Shape: wider than tall. Margins: Smooth Echogenic foci: Non Total points: 3 ACR TI-RADS category: Moderate suspicion Nodule number: 3 Location: Right midpole Size: 4.4 x 2.5 x 2.8 cm. Previously 4.1 x 2.1 x 2.6 cm. Composition: Mixed cystic and solid. Echogenicity: Isoechoic Shape: wider than tall. Margins: Smooth Echogenic foci: None Total points: 2 ACR TI-RADS category: Not suspicious IMPRESSION: The previously described mildly suspicious nodule in the left midpole is no longer visualized. Slight interval growth of the mildly suspicious nodule in the left inferior pole (down graded from moderately suspicion due to lack of echogenic foci on this examination). Continued follow-up in 5 years is recommended per consensus guidelines. ACR TI-RADS definitions and recommendations: TI-RADS 1 (benign): 0 points. FNA not needed. TI-RADS 2 (not suspicious): 2 points. FNA not needed. TI-RADS 3 (mildly suspicious): 3 points. * FNA if 2.5 cm or larger, follow up if 1.5 cm or larger (at 1, 3, and 5 years). TI-RADS 4 (moderately suspicious): 4-6 points. * FNA if 1.5 cm or larger, follow up if 1 cm or larger (at 1, 2, 3, and 5 years). TI-RADS 5 (highly suspicious): 7 points or more. * FNA if 1 cm or larger, follow up if 0.5 cm or larger (every year for 5 years). Dictated by: Roque Juan M.D. on 08/06/2023 at 14:07 Approved by: Roque Juan M.D. on 08/06/2023 at 14:15
== END ==
LOC: US 12:08
PROVIDERS: PCP Internal Medicine; Referring Provider Internal Medicine; Visit Provider Internal Medicine
DX: Z12.31 Encounter for screening mammogram for malignant neoplasm of breast (principal); R92.333 Mammographic heterogeneous density, bilateral breasts; E04.2 Nontoxic multinodular goiter
CPT/HCPCS: 76536; 77063; 77067

== ENCOUNTER → 2024-01-24 12:08 | Outpatient (ROUT) | payer OTHER, SELFPAY ==
[2024-01-24 13:28] LABS: COVID-19 CEPHEID 4-PLEX PCR Negative (Negative); Influenza A - CEPHEID Flu A NEGATIVE (NEGATIVE); Influenza B - CEPHEID Flu B NEGATIVE (NEGATIVE); Respiratory Syncytial Virus Negative (Negative)
== END ==
PROVIDERS: PCP Internal Medicine; Visit Provider Internal Medicine
DX: R10.9 Unspecified abdominal pain (principal); R11.0 Nausea; R05.1 Acute cough
CPT/HCPCS: 0241U

== ENCOUNTER → 2024-04-28 13:40 | Outpatient (CLI) | payer MEDICARE, SELFPAY ==
--- NOTE | 2024-04-28 13:41 | DI.MRI.S_ITS ---
PROCEDURE: MR AB PANCREATIC/MRCP PROTOCOL INDICATIONS: PANCREATIC CYST TECHNIQUE: Coronal HASTE through the abdomen, axial 2-D FLASH in- and [id number], and breath-hold T2 FSE with fat saturation through the biliary system and pancreas. Oblique coronal and axial thin-slice HASTE, radial thick-slab HASTE centered on the extrahepatic bile ducts. Intravenous secretin: Not requested. COMPARISON: [facility], MR, MR ABDOMEN WO/W CON, 02/20/2022, 11:24. [facility], CT, CT CHEST WO CON, 02/20/2022, 12:05. FINDINGS: Image quality: Diagnostic. Gallbladder: Absent. Biliary ducts: No biliary dilation. Pancreas: No ductal dilation. 2.2 cm cystic lesion in the pancreatic tail, with thin internal septation. There does appear to be a connection to the pancreatic duct. No ductal dilation. Additional dilated side branches are present within the parenchyma, as well as subcentimeter cystic lesions. OTHER: Lung bases: Stable nodularity in the right lung base. Stable left lower lobe solid nodule measuring 7 mm Liver: No solid mass. Spleen: Size is within normal limits. Punctate cyst is present, benign . Adrenal Glands: No adrenal nodules. Kidneys and Ureters: No hydronephrosis. No solid mass. No complex renal cystic lesion which requires follow up. Stomach and Bowel: Normal colonic caliber, without significant wall thickening. Peritoneum: No abnormal intraperitoneal fluid. No free air. Ventral Wall: No hernia. Abdominal Nodes: No retroperitoneal or mesenteric adenopathy by size criteria. Vessels: Aorta and inferior vena cava are normal in size. Bones: No aggressive osseous abnormality. IMPRESSION: Stable 2.2 cm cystic lesion in the pancreatic tail, with perceived connection to the pancreatic duct. 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 Two year surveillance for a total of 6 years is recommended, based on the imaging interval since 2021. Alternatively, a GI referral could be considered given size. Stable lower lung nodularity. Dictated by: Roque Juan M.D. on 04/28/2024 at 16:39 Approved by: Roque Juan M.D. on 04/28/2024 at 16:44
== END ==
PROVIDERS: PCP Registered Nurse; Referring Provider Registered Nurse; Visit Provider Registered Nurse
DX: K86.2 Cyst of pancreas (principal); R91.8 Other nonspecific abnormal finding of lung field; Z90.49 Acquired absence of other specified parts of digestive tract
CPT/HCPCS: 74183; A9579

== ENCOUNTER → 2024-05-15 13:08 | Outpatient (CLI) | payer MEDICARE, SELFPAY ==
--- NOTE | 2024-05-15 13:09 | DI.CT.S_ITS ---
PROCEDURE: CT CHEST WO CON INDICATIONS: H/o lung nodule, eval for change TECHNIQUE: Noncontrast 5 mm thick sections acquired from the pulmonary apices to the posterior costophrenic angles. 1 mm lung window, 5 mm thick coronal and sagittal and 7 mm axial MIP reformats were then acquired. For radiation dose reduction, the following was used: automated exposure control, adjustment of mA and/or kV according to patient size. COMPARISON: [facility], CT, CT CHEST WO CON, 02/20/2022, 12:05. [facility], NM, NM PET CT FUSION SKULL 2 THIGH, 03/18/2022, 10:12. FINDINGS: Image quality: Diagnostic Lungs and pleura: Background moderate emphysema. Right costophrenic angle nodule is stable, measuring up to 2.2 by 1.3 cm (3/266). 0.7 cm left medial lower lobe pulmonary nodules also unchanged. There are many other nodules measuring under 0.6 cm. Mediastinum, heart, and esophagus: Normal heart size. No pathologic lymph nodes by size criteria. Unremarkable esophagus Chest wall and thyroid: Unchanged thyroid nodules, better assessed on ultrasound Upper abdomen: Cholecystectomy clips. Bones: Degenerative changes, no acute or suspicious osseous abnormality. IMPRESSION: The largest nodules in the lower lobes described above are stable since at least 2021 and favored benign. Many other nodules are seen bilaterally measuring under 0.6 cm. Background emphysema. Given patient's presumed malignancy risk factors, consider yearly chest CT/low-dose lung cancer screening. Other findings above. Dictated by: Young Silva M.D. on 05/15/2024 at 14:26 Approved by: Young Silva M.D. on 05/15/2024 at 14:31
== END ==
LOC: CT 13:08
PROVIDERS: PCP Registered Nurse; Referring Provider Internal Medicine Critical Care Medicine; Visit Provider Internal Medicine Critical Care Medicine
DX: R91.8 Other nonspecific abnormal finding of lung field (principal); J43.9 Emphysema, unspecified; E04.2 Nontoxic multinodular goiter
CPT/HCPCS: 71250

== ENCOUNTER → 2024-08-04 13:37 | Outpatient (CLI) | payer MEDICARE, SELFPAY ==
[2024-08-04 15:43] LABS: Creatinine Urine Random 63.02 mg/dL
[2024-08-04 15:45] LABS: Microalbumin Urine Random 0.7 mg/dL (0-1.6)
== END ==
PROVIDERS: PCP Registered Nurse; Referring Provider Registered Nurse; Visit Provider Registered Nurse
DX: E11.9 Type 2 diabetes mellitus without complications (principal)
CPT/HCPCS: 82043; 82570

== ENCOUNTER → 2025-01-17 12:01 | Outpatient (CLI) | payer MEDICARE, SELFPAY ==
--- NOTE | 2025-01-17 12:03 | DI.RAD.S_ITS ---
PROCEDURE: XR CHEST 2V INDICATIONS: COUGH TECHNIQUE: 2 views of the chest were acquired. COMPARISON: [facility], CR, CHEST 1 VIEW, 01/12/2016, 19:39. [facility], CT, CT CHEST WO CON, 05/15/2024, 13:16. FINDINGS AND IMPRESSION: No dense airspace consolidation. Mild diffuse peribronchial thickening likely viral/atypical infection/bronchitis Heart size is at the upper limit of normal, unchanged mediastinal contours. Degenerative osseous findings. Dictated by: Young Silva M.D. on 01/17/2025 at 16:08 Approved by: Young Silva M.D. on 01/17/2025 at 16:09
== END ==
PROVIDERS: PCP Registered Nurse; Referring Provider Family Medicine; Visit Provider Family Medicine
DX: R05.1 Acute cough (principal)
CPT/HCPCS: 71046

== ENCOUNTER → 2025-01-17 15:02 | Outpatient (ROUT) | payer MEDICARE, SELFPAY ==
[2025-01-17 16:43] LABS: Influenza A - CEPHEID Flu A NEGATIVE (NEGATIVE); Influenza B - CEPHEID Flu B NEGATIVE (NEGATIVE)
[2025-01-17 16:53] LABS: COVID-19 CEPHEID 4-PLEX PCR Negative (Negative)
== END ==
PROVIDERS: PCP Registered Nurse; Visit Provider Family Medicine
DX: R05.1 Acute cough (principal); R06.02 Shortness of breath
CPT/HCPCS: 87637